=== PATIENT | male | born 1955 | race Caucasian/White ===

== ENCOUNTER 2022-11-05 12:42 | Inpatient (IN) | payer MEDICARE, BC, SELFPAY ==
[2022-11-05] VITALS (25 sets, daily range): BP systolic 137–176; BP diastolic 78–91; PULSE 66–78; RESP 18; TEMP 37.5; O2SAT 90–96; BMI 33.2
--- NOTE | 2022-11-05 13:34 | ED_ITS ---
HPI - Abdominal Pain General Chief Complaint: Abdominal Pain Stated Complaint: Abdominal pain Time Seen by Provider: 11/05/22 13:03 History of Present Illness HPI narrative: This 67-year-old male comes in reporting upper epigastric abdominal pain that began after eating his meal last evening. He states that it is a crampy pain that occurs almost regularly every 20 minutes. He has an intense very painful cramp in the upper epigastric region that dissipates and almost completely reso lves until the next episode about 20 minutes later. He has some associated nausea but no vomiting. He does not report any fever. Prior to this he has been in good health. He did have an a hernia repair but no other prior surgery to his abdomen. He does not report any symptoms of dysuria or altered bowel function. Related Data Allergies Allergy/AdvReac Type Severity Reaction Status Date / Time No Known Drug Allergies Allergy Verified 11/05/22 14:33 Review of Systems Status of ROS Reports: 10 or more systems reviewed and unremarkable except as noted in History and below Narrative Constitutional: No fevers, no weight gain or loss. Eyes: No discharge. No vision changes. HENT: No congestion, no sore throat, no ear pain. Cardiovascular: No chest pain, no palpitations. Respiratory: No shortness of breath, no wheezes, no cough. Gastrointestinal: No vomiting, no diarrhea. Abdominal pain as described above. He has loss of appetite. He did take some water and states that it seemed to make his symptoms worse. Genitourinary: No dysuria, no hematuria. Musculoskeletal: Normal range of motion. Skin: No rashes, no pruritis. Neurological: No dizziness, weakness, sensory change, speech change. Endo/Heme/Allergies: No bruising or bleeding. No polydipsia. Pysch: no suicidality, no anxiety, no insomnia. All other systems reviewed and are negative. Exam Narrative: Exam Narrative: Constitutional: Well-developed, well-nourished, no acute distress. HEENT: Normocephalic, atraumatic. Neck: Normal range of motion. Nontender. Supple. Heart: Regular. No murmurs. Normal rate. Intact distal pulses. Lungs: Clear to auscultation. No chest discomfort. No wheezes, rhonchi, or rales. Abdomen: Normal bowel sounds. He reports pain in the upper epigastric region. No rebound tenderness. Genitalia: Deferred. Back: No midline tenderness. Normal range of motion. Extremities: Normal range of motion. No injury. Skin: Intact. No rash. Warm. No erythema or pallor. Neurologic: No altered sensation. No weakness. Alert and oriented. Psychiatric: No suicidality. No anxiety or depression. No insomnia. Nursing notes and vitals signs are reviewed. Const: Vital Signs, click to edit/add: Vital Signs - 24 hr 11/05/22 12:58 Temperature 99.5 F Respiratory Rate 18 Blood Pressure [Ri ght Upper Arm] 168/83 H Pulse Oximetry 96 Oxygen Delivery Me thod Room Air Course Vital Signs Vital signs: Initial Vital Signs Temperature 99.5 F 11/05/22 12:58 Temperature Source Temporal Artery Scan 11/05/22 12:58 Respiratory Rate 18 11/05/22 12:58 Blood Pressure 168/83 H 11/05/22 12:58 Blood Pressure Mean 111 H 11/05/22 12:58 Pulse Oximetry 96 11/05/22 12:58 Oxygen Delivery Method Room Air 11/05/22 12:58 Vital Signs Temperature 99.5 F 11/05/22 12:58 Respiratory Rate 18 11/05/22 12:58 Blood Pressure 168/83 H 11/05/22 12:58 Pulse Oximetry 96 11/05/22 12:58 Oxygen Delivery Method Room Air 11/05/22 12:58 Temperature 99.5 F 11/05/22 12:58 Respiratory Rate 18 11/05/22 12:58 Blood Pressure 168/83 H 11/05/22 12:58 Pulse Oximetry 96 11/05/22 12:58 Oxygen Delivery Method Room Air 11/05/22 12:58 MDM - Abdominal Pain MDM Narrative Medical decision making narrative: This patient comes in with intermittent upper epigastric abdominal pain since last night. An IV was established and labs are acquired showing a mild elevation of his white count. CT imaging of the abdomen and pelvis is acquired and somewhat surprisingly shows evidence of acute severe appendicitis without evidence of perforation or abscess. He does also have an appendical if the. I spoke with the surgeon on-call, Dr. Edmonds. She will arrange for appendectomy very soon. Lab Data Labs: Lab Results 11/05/22 Range/Units 13:45 WBC 13.26 H (4.50-11.00) K/uL RBC 4.95 (4.30-5.90) m/uL Hgb 14.8 (13.5-17.5) gm/dL Hct 43.7 (37.0-53.0) % MCV 88 (80-100) fL MCH 30 (26-34) pg MCHC 34 (32-36) gm/dL RDW Coeff of Jose Miguel 12.5 (11.5-15.5) % Plt Count 237 (140-440) K/uL Neut % (Auto) 84.1 H (42.0-72.0) % Lymph % (Auto) 4.1 L (20-44) % Holt % (Auto) 11.2 H (0.0-11.0) % Eos % (Auto) 0.2 (0.0-7.0) % Baso % (Auto) 0.2 (0.0-3.0) % Neut # (Auto) 11.20 H (1.7-7.0) K/uL Lymph # (Auto) 0.50 L (0.90-2.90) K/uL Holt # (Auto) 1.50 H (0.00-0.90) K/UL Eos # (Auto) 0.00 (0.00-0.50) K/uL Baso # (Auto) 0.00 (0.00-0.30) K/uL Abs Immat Gran (auto) 0.00 (0.00-0.30) K/uL Imm/Tot Granulo (auto) 0.2 % Sodium 136 (135-149) mmol/L Potassium 3.0 L (3.6-5.1) mmol/L Chloride 99 (96-114) mmol/L Carbon Dioxide 30 (20-32) mmol/L BUN 19 (7-30) mg/dL Creatinine 0.7 (0.5-1.5) mg/dL Estimated Creat Clear 73.65 Estimated GFR 102 ml/min Glucose 129 H (60-115) mg/dL Calcium 8.6 (8.4-10.6) mg/dL Total Bilirubin 1.0 (0.1-1.5) mg/dL Direct Bilirubin 0.0 (0.0-0.5) mg/dL AST 20 (12-35) U/L ALT 25 (4-50) U/L Alkaline Phosphatase 68 (40-150) U/L Total Protein 6.9 (6.0-8.3) g/dL Albumin 4.2 (3.3-5.0) g/dL Lipase 32 (23-300) U/L Imaging Data CT scan - abdomen: Radiologist's impression: 1. Severe acute appendicitis. No evidence of perforation or abscess formation at this time. 2. Indeterminate subcentimeter bilateral renal lesions, too small to characterize. Recommend follow-up CT in 6-12 months. 3. Prostatomegaly, correlate with serum PSA. Discharge Plan Discharge Clinical Impression: Acute appendicitis Patient Disposition: XFER to OR Condition: Unchanged Follow Up/Referrals: Provider,Not a Local [Primary Care Provider] -
[2022-11-05 13:53] LABS: Basophils Percent Auto 0.2 % (0.0-3.0); Eosinophils Percent Auto 0.2 % (0.0-7.0); Hematocrit 43.7 % (37.0-53.0); Hemoglobin* 14.8 gm/dL (13.5-17.5); Immature Granulocytes Pct Auto 0.2 %; Lymphocytes Percent Auto 4.1 % (20-44); Mean Corpuscular HGB Conc 34 gm/dL (32-36); Mean Corpuscular Hemoglobin 30 pg (26-34); Mean Corpuscular Volume 88 fL (80-100); Monocytes Percent Auto 11.2 % (0.0-11.0); Neutrophils Percent Auto 84.1 % (42.0-72.0); Platelet Count* 237 K/uL (140-440); RDW Coefficient of Variation % 12.5 % (11.5-15.5); Red Blood Count 4.95 m/uL (4.30-5.90); White Blood Count* 13.26 K/uL (4.50-11.00)
[2022-11-05 13:54] LABS: Slide Review Reflex No
[2022-11-05] MEDS: ONDANSETRON 2 MG/ML inj 4 MG IVP ×2 (13:54→20:23)
[2022-11-05] MEDS: KETOROLAC 30 MG/ML inj IVP (13:54)
[2022-11-05] MEDS: 0.9 % SODIUM CHLORIDE 1000 ml 1,000 ML IV (13:55)
[2022-11-05 14:09] LABS: Chloride* 99 mmol/L (96-114); Sodium* 136 mmol/L (135-149)
[2022-11-05 14:10] LABS: Albumin* 4.2 g/dL (3.3-5.0)
[2022-11-05 14:11] LABS: Creatinine* 0.7 mg/dL (0.5-1.5); Est. Creatinine Clearance* 73.65; Estimated Glomerular Filt Rate 102 ml/min
[2022-11-05 14:12] LABS: Blood Urea Nitrogen* 19 mg/dL (7-30); Calcium* 8.6 mg/dL (8.4-10.6); Carbon Dioxide* 30 mmol/L (20-32); Glucose* 129 mg/dL (60-115); Total Protein* 6.9 g/dL (6.0-8.3)
[2022-11-05 14:13] LABS: Alanine Aminotransferase* 25 U/L (4-50); Alkaline Phosphatase* 68 U/L (40-150); Aspartate Amino Transferase* 20 U/L (12-35); Lipase* 32 U/L (23-300)
--- NOTE | 2022-11-05 14:17 | CRLHL7_ITS ---
For Patients: As a result of the Century Cures Act, medical imaging exams and procedure reports are released immediately into your electronic medical record. You may view this report before your referring provider. If you have questions, please contact your health care provider. INDICATION: Epigastric pain. TECHNIQUE: CT abdomen and pelvis acquired with 100 mL Isovue 370 contrast. COMPARISON: None. FINDINGS: Lower chest: No focal consolidation. Liver: Scattered too small to characterize hypodense hepatic lesions, likely benign in the absence of a known malignancy. Gallbladder and bile ducts: Unremarkable. Pancreas: Unremarkable. Spleen: Unremarkable. Adrenal glands: Unremarkable. Kidneys: Kidneys enhance symmetrically, without hydronephrosis. Too small to characterize hypodense bilateral renal lesions. These include an indeterminate appearing 0.8 cm lesion in the anterior right kidney (series 2, image 58) as well as an indeterminate 0.5 cm lesion in the posterior left kidney (series 2, image 54). Retroperitoneum: No lymphadenopathy. Bowel and mesentery: Dilated appendix with extensive periappendiceal inflammation, and a 0.8 cm appendicolith at the appendix base. No evidence of perforation or abscess formation at this time. No pneumoperitoneum. Bladder: Unremarkable for degree of distension. Reproductive organs: Prostatomegaly. Pelvic lymph nodes: No lymphadenopathy. Vessels: Extensive atherosclerotic calcifications. Abdominal wall: No acute abdominal wall abnormality. Bones: Extensive multilevel degenerative changes of the spine. No suspicious/aggressive focal osseous lesion. IMPRESSION: 1. Severe acute appendicitis. No evidence of perforation or abscess formation at this time. 2. Indeterminate subcentimeter bilateral renal lesions, too small to characterize. Recommend follow-up CT in 6-12 months. 3. Prostatomegaly, correlate with serum PSA. Please note that all CT scans at this facility use dose modulation, iterative reconstruction, and/or weight-based dosing when appropriate to reduce radiation dose to as low as reasonably achievable. Dictated by Tova Macdonald MD @ 11/05/2022 3:44:51 PM (Electronically Signed)
--- NOTE | 2022-11-05 17:35 | PM.GSHP ---
History of Present Illness History of Present Illness Date Seen: 11/05/22 Chief complaint: Abdominal pain Narrative: Roddy Wellington is a 67 year old male who presented to emergency room with epigastric abdominal pain that started yesterday in the afternoon. Patient states that he felt ?stomach ache? that became stomach spasms that he describes as contractions. Those would come every 20 minutes. They were located in epigastrium. He could not sleep all night. He had nausea but no vomiting. He was not passing gas today and his last bowel movement was yesterday. He was not sure what was making his pain better or worse. Upon his workup he was found to have an elevated WBC of 13. An abdominal CT was obtained that showed a dilated wall enhancing appendix with dilated appendiceal base and appendicolith at the appendiceal base. There is fluid at the appendiceal base that appears to be in the cecum but it is difficult to tell if there is a phlegmon present. The small bowel is not dilated. There is no clear evidence of periappendiceal abscess. Review of Systems Narrative: General: no fevers HENT: no problems swallowing CV: no shortness of breath Resp: no cough GI: See above : no dysuria, no increased urinary frequency, no hematuria Skin: no new rashes Musculoskeletal: no back pain Neuro: no muscle weakness PFSH PFS Surgical History (Updated 11/05/22 @ 17:40 by Graciela Edmonds MD) S/P repair of ventral hernia ?Z98.890 - Other specified postprocedural states (ICD-10) ?Z87.19 - Personal history of other diseases of the digestive system (ICD-10) Social History Smoking Status: Unknown if ever smoked Meds Home Medications and Allergies Allergies Allergy/AdvReac Type Severity Reaction Status Date / Time No Known Drug Allergies Allergy Verified 11/05/22 14:33 Exam Narrative: Exam Narrative: General appearance: Alert, cooperative, and in no distress Pulmonary: Chest symmetric, lungs clear bilaterally Cardiovascular Heart: Regular rate and rhythm, S1, S2, no murmurs/rubs/gallops Gastrointestinal Abdominal: soft, not distended, uncomfortable to palpation in epigastrium and there is right lower quadrant discomfort with rebound tenderness. Skin: Normal skin color, texture, and turgor. No rashes or lesions. Psychiatric: Alert, cooperative, normal affect. Const: Vital Signs, click to edit/add: Vital Signs - 24 hr 11/05/22 12:58 11/05/22 13:58 11/05/22 14:00 Temperature 99.5 F Pulse Rate 75 73 Respiratory Rate 18 Blood Pressure Blood Pressure [Ri ght Upper Arm] 168/83 H Pulse Oximetry 96 92 92 Oxygen Delivery Me thod Room Air Room Air 11/05/22 14:02 11/05/22 14:15 11/05/22 14:30 Temperature Pulse Rate 70 74 74 Respiratory Rate Blood Pressure 176/90 H Blood Pressure [Ri ght Upper Arm] Pulse Oximetry 91 90 95 Oxygen Delivery Me thod 11/05/22 14:32 11/05/22 14:45 11/05/22 15:04 Temperature Pulse Rate 78 77 76 Respiratory Rate Blood Pressure 173/91 H Blood Pressure [Ri ght Upper Arm] Pulse Oximetry 94 95 93 Oxygen Delivery Me thod 11/05/22 15:06 11/05/22 15:15 11/05/22 15:34 Temperature Pulse Rate 72 75 75 Respiratory Rate Blood Pressure 165/80 H Blood Pressure [Ri ght Upper Arm] Pulse Oximetry 95 95 95 Oxygen Delivery Me thod 11/05/22 15:45 11/05/22 16:07 11/05/22 16:57 Temperature Pulse Rate 72 73 72 Respiratory Rate Blood Pressure Blood Pressure [Ri ght Upper Arm] Pulse Oximetry 92 93 94 Oxygen Delivery Me thod 11/05/22 16:59 Temperature Pulse Rate Respiratory Rate Blood Pressure 153/89 H Blood Pressure [Ri ght Upper Arm] Pulse Oximetry Oxygen Delivery Me thod Assessment and Plan Assessment and plan (1) Acute appendicitis: Status: Acute (2) HTN (hypertension): Status: Acute (3) Hyperlipemia, mixed: Status: Acute Plan 67-year-old male presents with abdominal pain that is most likely due to acute appendicitis. I discussed with the patient his laboratory and imaging findings. Patient has dilated and wall enhancing appendix with an appendicolith at the base of the appendix. There is also a lot of information at the base of his appendix and it is difficult to tell if he has an intramural abscess were fluid in the cecum due to surrounding edema. I recommended to proceed with laparoscopic appendectomy. The procedure was discussed in detail. The risks associated procedure including infection, bleeding, injury to intra-abdominal organs, and possible need for ileocecectomy was also discussed with the patient. We are working on timing for surgery because of emergent OR cases being added on the OR schedule. We will treat the patient with antibiotics while waiting.
[2022-11-05] MEDS: MORPHINE 4 MG/ML INJ IVP (20:16)
--- NOTE | 2022-11-05 21:33 | ED.NURSE ---
Patient independently ambulatory to .
[2022-11-05] MEDS: PIPERACILLIN/TAZOBACTAM 3.375 GM INJ IVPB (22:48)
[2022-11-06] VITALS (22 sets, daily range): BP systolic 133–163; BP diastolic 76–101; PULSE 75–93; RESP 12–20; TEMP 35.5–37.3; O2SAT 91–97
--- NOTE | 2022-11-06 03:39 | W.ANESCHARGE ---
Anesthesia Charges Start Date/Time Anesthesia Start Date: 11/05/22 Anesthesia Start Time: 22:34 Stop Date/Time Anesthesia Stop Date: 11/06/22 Anesthesia Stop Time: 03:34 Summary Emergency: DIRECTOR OF PEDIATRIC REHABILITATION
--- NOTE | 2022-11-06 03:40 | PM.GSPRC ---
Operative Note Date of procedure: 11/05/22 Pre-op diagnosis: 1. Acute appendicitis. Post-op diagnosis: 1. Thickened appendiceal base with cecal puckering concerning for malignancy. Type of Procedure: 1. Laparoscopic appendectomy converted to laparoscopic right hemicolectomy. 2. Partial omentectomy. Indications: 67-year-old male presented to emergency room with epigastric pain that eventually migrated to the right lower quadrant. The pain started yesterday and was described as cramping or contractions. Patient did not have any fevers. On clinical exam he had tenderness to palpation in epigastrium and without significant rebound tenderness in right lower quadrant. Upon his workup he was found to have an elevated WBC. An abdominal CT was obtained that showed a dilated appendix with periappendiceal inflammation. There was thickening at the appendiceal base with an appendicolith and with fluid in the cecum adjacent to the appendiceal base. There was no evidence of periappendiceal abscess. Given patient's clinical picture and his physical exam, acute appendicitis was suspected, and laparoscopic appendectomy was recommended. The procedure was discussed in detail. The risks associated procedure including infection, bleeding, injury to intra-abdominal organs, and possible conversion to ileocecectomy were all discussed with the patient, and he agreed to proceed. Procedure Description: After discussing the risks and benefits of the procedure, the patient signed informed consent.? The operative site was marked and the patient was brought to the operating room and placed on the operating table in supine position.? Care was taken to pad the patient's pressure points.?? The patient was then intubated by anesthesia.?? The operative site was then prepped and draped in the usual sterile fashion.? A time-out was then performed. A 5-mm laparoscopy port was placed in the left upper quadrant guided by a 5-mm laparoscope placed into a translucent trochar. Passage through the layers of the abdominal wall was visualized with the laparoscope. A pneumoperitoneum was established. A 30-degree 5-mm laparoscope was advanced into the abdomen. The abdomen was briefly surveyed, and there was no evidence of diffuse peritonitis. A 12-mm port and a 5-mm port were placed in the left lower quadrant and suprapubically, respectively, under direct visualization by laparoscope. Left upper quadrant entrance port was then examined intraabdominally by placing the camera through the left lower quadrant port and no intraabdominal injury was seen. The patient was placed in Trendelenburg position, allowing the abdominal contents to shift cephalad. The small bowel was moved toward the midline in the abdomen and this allowed for identification of the appendix. The appendiceal base was thickened and folded on itself. The appendix was dissected from the lateral abdominal wall with Harmonic scalpel. Once the appendix was free from the lateral abdominal wall, I was able to examine the appendiceal base closer. The appendiceal base was firm and there appeared to be puckering of the appendiceal base into the cecum. This was concerning for malignant mass. The cecum did not have inflammatory firm adhesions to adjacent structures. There was an area of omentum that appeared to have flat scar but no peritoneal studding was noted and the surface of visualized liver appeared normal with a small cyst. The appendix and cecum were mobilized off the lateral abdominal wall with Harmonic scalpel. The terminal ileum that was attached to the lateral abdominal wall was mobilized with Harmonic scalpel. When the cecum was fairly mobile, I re-examined the base of the appendix and continued to be concerned that there is a cecal malignancy creating the puckering of the cecal serosa into cecal lumen. At this time I scrubbed out of the surgery and went to talk to the patient's . I discussed with the patient's my concerns and I recommended to proceed with a right hemicolectomy because of the concern for cecal or appendiceal cancer. I did discuss with her that only final pathology will be able to confirm if his thickening is due to inflammation or malignance. Patient's agreed to proceed with right hemicolectomy. I scrubbed back into the case. An additional 5 mm port was placed in mid abdomen under direct visualization. I then proceeded with the right hemicolectomy laparoscopically. The cecum and ascending colon was retracted medially. The white line of Toldt on the right was divided laterally with the Harmonic scalpel. The small bowel was making it difficult to identify the vascular pedicle at the beginning of the case. I decided to proceed with mobilization of hepatic flexure and lateral to medial dissection. Gastrocolic ligament was divided with Harmonic scalpel in the mid transverse colon. This dissection was carried from mid transverse colon towards the hepatic flexure wrapping around the hepatic flexure in the lateral abdominal wall with Harmonic scalpel. The transverse colon was retracted caudad and colonic mesentery was dissected from retroperitoneum with Harmonic scalpel as well. Care was taken to avoid injury to the duodenum. When the lateral attachments of the hepatic flexure were divided, we turned our attention again to the ileocolic vascular pedicle. The peritoneum overlying the vascular pedicle was scored with a Harmonic scalpel. The artery and vein was skeletonized with Harmonic scalpel and with [place] dissector. The vascular pedicle was then divided with vascular load of Endo-SARKIS stapler. No bleeding was seen from the staple line. I continued mesenteric dissection towards the hepatic flexure with Harmonic scalpel until we reached the plane of dissection in the posterior transverse colonic mesentery. At this time the colon was fairly mobile and we decided to proceed with the open part of the procedure. The appendix was grasped with a laparoscopic grasper. A horizontal right paramedian incision was made with a scalpel in mid abdomen. Subcutaneous fat was divided with cautery down to anterior fascia. The anterior fascia was incised with cautery. Rectus muscle was divided with cautery. Peritoneum and posterior fascia was then incised with cautery and abdomen was entered. This incision was then enlarged and a medium sized Amarjit retractor was placed into the incision. The dissected cecum was eviscerated and examined. The base of the appendix was firm on palpation. The terminal ileal mesentery was then divided with the Harmonic scalpel several cm from the ileocecal valve. The small bowel was then divided with blue load of SARKIS stapler. Transverse colon at the hepatic flexure was then examined. Abundant epiploic fat was excised with cautery at the proposed area of division of the transverse colon. Colonic mesentery was divided with clamps and Vicryl ties. The proximal transverse colon was then divided with a blue load of SARKIS stapler. Bleeding from small bowel and transverse colon staple line was controlled with interrupted figure of eight silk sutures. We then proceeded with creating side to side functional end-to-end anastomosis. A small bowel enterotomy was made with cautery on anti mesenteric side. Similarly, colotomy was made in the tenia with cautery. These openings were approximately 1-2 cm away from the staple lines. A functional end-to-end anastomosis was then created with a blue load of SARKIS stapler. The staple line was examined from the inside and no bleeding was visualized. The common enterotomy was then closed with interrupted Lambert sutures using 3-0 silk. A crotch stitch was placed with 3-0 silk. The mesenteric defect was not closed. No bleeding was seen from the mesentery or anastomosis. The anastomosis was pink and perfused. The anastomosis was palpated and was patent. The anastomosis was then placed back into the abdomen. All dirty towels that were previously placed were removed, and surgeon and assistants changed gloves. The Christina retractor was also removed. We then eviscerated omentum and identified the area of scar tissue over omentum. This segment was approximately 7 x 4 cm. This was excised with Harmonic scalpel. This was sent to pathology separately as partial omentectomy. We then proceeded with closure. Peritoneum of paramedian incision was then closed with a running 0-0 Vicryl suture. The anterior fascia was closed with 2 running 0-0 Maxon sutures. Hemostasis was achieved with cautery. A moist Ray-Aleta was placed in the subcutaneous space of the incision. The abdomen was then insufflated with carbon dioxide. We examined our anastomosis intracorporeally. Anastomosis was pink and perfused. No bleeding was identified at the surgical site. The fascia of the 12 mm port in the left lower quadrant was then closed with interrupted 0-0 Vicryl using Sky-Lexi needle. This was done under direct visualization. The abdomen was then deflated and all ports were removed. The soft tissue of the right paramedian incision was then reapproximated in layers with interrupted Vicryl sutures. The skin of laparoscopic incisions and the right paramedian incision were closed with a running 4-0 Monocryl stitch. Steri-Strips were placed over the incisions. The paramedian incision was covered with sterile gauze and tape. All counts were correct at the end of the case. The patient tolerated this procedure well and was transferred to PACU in stable condition. Findings: Thickened appendiceal base with puckering of the cecum a the base of the appendix concerning for malignancy. Proceeded with laparoscopic right hemicolectomy. The specimen was opened on the back table and the base of the appendix was thickened in a donut like fashion but there was no exophitic mass. Anesthesia: GETA Surgeon: Graciela Edmonds MD Estimated blood loss (mL): 30 Specimen: Appendix Condition: stable Disposition: PACU
[2022-11-06] MEDS: LACTATED RINGERS 1000 ML 1,000 ML 100 ML IV ×3 (04:34→19:17)
[2022-11-06] MEDS: HYDROmorphone 0.5 mg/0.5 ml inj IVP ×7 (04:57→23:48)
[2022-11-06] MEDS: PIPERACILLIN/TAZOBACTAM 3.375 GM in 0.9 % SODIUM CHLORIDE Mini-bag 100 ML IVPB ×4 (04:57→22:47)
--- NOTE | 2022-11-06 07:01 | PC.NURSE ---
Pt arrived from PACU approx 0400, no N/V, pain tolerable. Lap sites x3 with steri-strips, intact, old drainage present underneath. R abd incision dressing C/D/I, tolerating ice chips and small sips. educated and emphesized importance or taking oral intake slow, pt and family acknowledged understanding. no bowel sounds present, is not passing gas yet, abd distended and firm.
[2022-11-06 08:13] LABS: Basophils Percent Auto 0.1 % (0.0-3.0); Hematocrit 43.7 % (37.0-53.0); Hemoglobin* 14.4 gm/dL (13.5-17.5); Immature Granulocytes Pct Auto 0.2 %; Lymphocytes Percent Auto 2.3 % (20-44); Mean Corpuscular HGB Conc 33 gm/dL (32-36); Mean Corpuscular Hemoglobin 30 pg (26-34); Mean Corpuscular Volume 90 fL (80-100); Monocytes Percent Auto 6.2 % (0.0-11.0); Neutrophils Percent Auto 91.2 % (42.0-72.0); Platelet Count* 215 K/uL (140-440); RDW Coefficient of Variation % 12.8 % (11.5-15.5); Red Blood Count 4.84 m/uL (4.30-5.90)
[2022-11-06 08:14] LABS: Slide Review Reflex No
[2022-11-06 08:29] LABS: Chloride* 99 mmol/L (96-114); Potassium* 3.2 mmol/L (3.6-5.1); Sodium* 138 mmol/L (135-149)
[2022-11-06 08:32] LABS: Carbon Dioxide* 28 mmol/L (20-32); Creatinine* 0.9 mg/dL (0.5-1.5); Est. Creatinine Clearance* 73.65; Estimated Glomerular Filt Rate 95 ml/min
[2022-11-06 08:33] LABS: Blood Urea Nitrogen* 19 mg/dL (7-30); Calcium* 8.3 mg/dL (8.4-10.6); Glucose* 196 mg/dL (60-115)
[2022-11-06] MEDS: POTASSIUM CHLORIDE 10 MEQ/100 ML PIGGYBACK 100 MEQ IVPB (10:38)
[2022-11-06] MEDS: HYDROCODONE-ACETAMIN 5-325 MG 1 TAB PO (18:44)
--- NOTE | 2022-11-06 18:53 | PC.NURSE ---
Post op 6 hr was completed @ 1000 this morning. Pt is reporting constant 5/10 pain received IV Dilaudid a couple times this shift see MAR. Received his first dose of PO medication 650 of NORCO @1850. On prophylactic antibiotics. Pt tolerating clear liquids well, pt was encouraged to take slow sips but drank more than sips see I/O. Had 1/2 cup of broth and 2 jello cups and reports he feels full. Voiding well since surgery. No gas passed yet, tenderness and distention present. Lower left/right quadrants sound hypoactive, both upper quadrants have absent bowel sounds. Dressing to incision site is CDI, 4 lap sites with steri strips w/ some dried blood. Ice to Op site throughout the shift. Bilateral SCD's in place. Educated on incentive spirometer as well as PO vs IV pain medications, and proper movement post abdominal surgery. Pt's and daughter at bedside most of the afternoon, has gone on multiple walks in the [place]. Pt is very motivated to get better, he was encouraged to take it slow to not overdue it by his family as well.
[2022-11-07] MEDS: HYDROCODONE-ACETAMIN 5-325 MG 1 TAB PO ×4 (00:22→18:22)
[2022-11-07 03:00] VITALS: BP 149/78; PULSE 82; RESP 18; TEMP 36.4; O2SAT 91
[2022-11-07] MEDS: PIPERACILLIN/TAZOBACTAM 3.375 GM in 0.9 % SODIUM CHLORIDE Mini-bag 100 ML IVPB ×3 (05:06→16:37)
--- NOTE | 2022-11-07 05:21 | PC.NURSE ---
patient alert and oriented x 4. Pain reported to abdomen, well managed with PRN norco and dilaudid. Denies any nausea or vomiting, tolerating clear liquids. Bowel sounds hypoactive, patient is passing flatus. Lungs clear, denies any cough or shortness of breath. Patient is able to use incentive spirometer independently. Ambulates independently, up ad sapphire in room. Patient up frequently in room and also walking the halls.
[2022-11-07 07:38] VITALS: BP 148/87; PULSE 81; RESP 16; TEMP 36.9; O2SAT 91
[2022-11-07] MEDS: POTASSIUM BICARB 25 MEQ EFFERVESCENT TAB PO ×2 (09:33→13:09)
--- NOTE | 2022-11-07 10:11 | PM.DS1 ---
DS: Providers Provider Date Seen: 11/07/22 Date of admission: 11/06/22 04:15 Primary care physician: Not a Local Provider Admitting Clinician: Graciela Edmonds MD Attending Physician on discharge: Graciela Edmonds MD DS: Diagnosis Discharge Diagnosis (1) Acute appendicitis: Status: Acute (2) S/P right hemicolectomy: Status: Acute DS: Summary Hospital Course Hospital Course: 67-year-old male underwent laparoscopic appendectomy converted to right hemicolectomy for concern of cancer at the appendiceal base. Patient has been doing well. He is tolerating clears and had flatus today. His diet diet was advanced. Status at Discharge Functional status at discharge: independent ambulation Time Spent with Patient Time attestation: Total time spent providing and/or coordinating discharge services: Exam Const: Vital Signs, click to edit/add: Vital Signs - 24 hr 11/06/22 15:53 11/06/22 18:44 11/06/22 19:00 Temperature 99.1 F 98.5 F 98.1 F Pulse Rate [Pulse Oximeter] 90 86 Respiratory Rate 16 18 Blood Pressure [Le ft Arm] 144/88 H 155/91 H Pulse Oximetry 91 92 Oxygen Delivery Me thod Room Air Room Air 11/06/22 23:00 11/07/22 03:00 11/07/22 07:38 Temperature 98.5 F 97.6 F 98.5 F Pulse Rate [Pulse Oximeter] 83 82 81 Respiratory Rate 16 18 16 Blood Pressure [Le ft Arm] 142/78 H 149/78 H 148/87 H Pulse Oximetry 91 91 91 Oxygen Delivery Me thod Room Air Room Air Room Air Discharge Plan Discharge Disposition: Home, Self-Care Date of Admission: 11/06/22 04:15 Attending Provider on Discharge: Graciela Edmonds Primary Care Provider: Provider,Not a Local Condition: Improved Anticipated Discharge Date/Time: 11/06/22 20:12 Discharge Medications: New hydrocodone-acetaminophen 5-325 mg tablet 1 tab PO Q6H PRN (Reason: pain) Qty: 25 0RF Continued rosuvastatin 5 mg tablet 5 mg PO DAILY mhqcfkpnra-qwjupzwhs-qzmsakjwr 10-320-25 mg tablet 1 tab PO DAILY ibuprofen 200 mg tablet 200 mg PO Q6-8H PRN glucosamine sulfate [Glucosamine] 500 mg tablet 1,000 mg PO DAILY diphenhydramine HCl [Sleep Aid (diphenhydramine)] 25 mg tablet 25 mg PO HS PRN Discharge Orders: Discharge Order (Routine); Ordered 11/07/22 Ordered By: Graciela Edmonds Patient Education: General Anesthesia (DC), Laparoscopic Appendectomy (DC), Post-Operative Instructions: Appendectomy Additional Instructions: You should follow-up with your primary care doctor in [place] to make sure your incisions are healing well. Activity Level: No strenuous activity Discharge Diet: Regular Follow Up Appointments: Provider,Not a Local [Primary Care Provider] - Forms: [facility] Info Instructions
[2022-11-07 11:37] VITALS: BP 148/83; PULSE 84; RESP 16; TEMP 36.9; O2SAT 91
[2022-11-07] MEDS: HYDROmorphone 0.5 mg/0.5 ml inj IVP (14:13)
[2022-11-07 15:10] VITALS: BP 118/83; PULSE 84; RESP 16; TEMP 36.9; O2SAT 91
--- NOTE | 2022-11-07 18:59 | PC.NURSE ---
VSS on RA, IV went bad today per [facility] ok to dc ABX. Pt felt very bloated and 7/10 pain awhile after having PO potassium earlier today. IV diluadid given 1x, gave 2 tabs of NARCO q6 right on schedule. He has had tolerable 5/10 pain since. Tried his first full liquid diet for dinner, no nausea. Dr Edmonds also took off the larger incision bandage. 4 lap sites with steri strips CDI. Ice to Op site on and off throughout the shift. Abdomen is soft, and hypoactive bowel sounds in all 4 quadrents, with flatus. Went on a couple walks with his family. The original plan was for him to dc today but pt feels more comfortable leaving tomorrow which Dr Edmonds approved as well.
[2022-11-07 19:00] VITALS: BP 155/83; PULSE 85; RESP 16; TEMP 37.3; O2SAT 91
[2022-11-07 23:00] VITALS: BP 170/90; PULSE 89; RESP 16; TEMP 37.1; O2SAT 89
[2022-11-08] VITALS (9 sets, daily range): BP systolic 149–180; BP diastolic 81–97; PULSE 73–91; RESP 16–18; TEMP -15–37; O2SAT 91–94
[2022-11-08] MEDS: HYDROCODONE-ACETAMIN 5-325 MG 1 TAB PO ×3 (00:02→15:06)
--- NOTE | 2022-11-08 06:15 | PC.NURSE ---
Shift note: Pt 's condition is stable. Tolerated full liquid diet very well without any abdominal symptoms. Alert and oriented. Doing well with pain, rated at 5 and only 1x pain medication tonight. Pt confirmed of passing gas. Active bowel sound but no BM yet. Pt is independent in room. Had adequate sleep.
[2022-11-08] MEDS: ONDANSETRON ODT 4 MG TAB PO ×2 (08:48→15:06)
--- NOTE | 2022-11-08 09:56 | P.GSPN_ITS ---
Subjective Subjective Date Seen: 11/08/22 Interval history: Patient is doing well. Received IV Dilaudid and [place] yesterday for increased abdominal pain. Patient states that the pain is usually worse with movement. He continues to pass gas. He tolerated clears and full liquid diet. He ambulated. Exam Narrative: Exam Narrative: Abdomen is soft, patient complains of discomfort throughout the abdomen although when abdomen is palpated in the lower bilateral quadrants patient denies pain. Incisions are covered with clean steris. Const: Vital Signs, click to edit/add: Vital Signs - 24 hr 11/07/22 11:37 11/07/22 15:10 11/07/22 19:00 Temperature 98.5 F 98.5 F 99.2 F Pulse Rate [Pulse Oximeter] 84 84 85 Respiratory Rate 16 16 16 Blood Pressure [Le ft Arm] 148/83 H 118/83 155/83 H Pulse Oximetry 91 91 91 Oxygen Delivery Me thod Room Air Room Air Room Air 11/07/22 23:00 11/07/22 23:00 11/08/22 03:00 Temperature 98.7 F 98.6 F Pulse Rate [Pulse Oximeter] 89 89 91 Respiratory Rate 16 16 16 Blood Pressure [Le ft Arm] 170/90 H 169/97 H Pulse Oximetry 89 91 Oxygen Delivery Me thod Room Air Room Air Progress Note: A&P Assessment and plan (1) S/P right hemicolectomy: Status: Acute Plan 67-year-old male s/p laparoscopic appendectomy converted to right hemicolectomy POD 3. Patient can advance to regular diet since he has return of bowel function. I discussed with the patient that his pain with movement is normal after the type of surgery that he had. He should continue ambulating as tolerated. He can take [place] as needed. I reinforced with the patient that he should eat small amounts throughout the day and not 3 big meals during his recovery period.
--- NOTE | 2022-11-08 09:59 | P.GSPN_ITS ---
Subjective Subjective Date Seen: 11/07/22 Interval history: Patient was doing well. His abdominal pain was controlled with IV and p.o. pain medication. He denies any nausea or vomiting. He started to pass gas. He was ambulating. Exam 2 Narrative: Exam Narrative: Abdomen is soft, not distended, not tender to palpation. Laparoscopic incisions and right paramedian incision were covered with clean Steries. Const: Vital Signs, click to edit/add: Vital Signs - 24 hr 11/07/22 11:37 11/07/22 15:10 11/07/22 19:00 Temperature 98.5 F 98.5 F 99.2 F Pulse Rate [Pulse Oximeter] 84 84 85 Respiratory Rate 16 16 16 Blood Pressure [Le ft Arm] 148/83 H 118/83 155/83 H Pulse Oximetry 91 91 91 Oxygen Delivery Me thod Room Air Room Air Room Air 11/07/22 23:00 11/07/22 23:00 11/08/22 03:00 Temperature 98.7 F 98.6 F Pulse Rate [Pulse Oximeter] 89 89 91 Respiratory Rate 16 16 16 Blood Pressure [Le ft Arm] 170/90 H 169/97 H Pulse Oximetry 89 91 Oxygen Delivery Me thod Room Air Room Air Progress Note: A&P Assessment and plan (1) S/P right hemicolectomy: Status: Acute Assessment and Plan: 67 year old male s/p right hemicolectomy p.o. due to. Patient is recovering well. He has return of bowel function. Will advance his diet to full liquids. Patient could discharge home but the end of the day if his pain is controlled with p.o. medications and he is tolerating regular diet.
--- NOTE | 2022-11-08 10:32 | PC.NURSE ---
shift note: Pt states this a.m he has sudden increase in nausea. Dr. Edmonds notified via phone and orders to give Zofran ODT. Pt received medication and was instructed to use alcohol wipe to assist with nausea. Rechecked pt within 30 mins and pt's resting with nausea resolved. Pt medicated for 8/10 abd pain with 2 norco. Rechecked pt 1 hour after admin and pt asleep. pt's at bedside. Instructed pt's to have pt turn to lt side onto pillow and use aqua K pad for abd discomfort. Pt abd is distended and BS tympanic. Pt's spouse alerted show card writer ! 1020 that pt awoke in severe pain. Dr. Edmonds notified; lab work ordered and pt made NPO. Dr. Edmonds said she was going to see pt. Family notified
--- NOTE | 2022-11-08 11:02 | PM.GSPN ---
Subjective Subjective Date Seen: 11/08/22 Interval history: Patient all of a sudden started to complain of nausea. Received still with Zofran. He now complains of increased abdominal pain and bloating. He tried to go to the bathroom to pass gas but was not successful. He walked only twice yesterday and has not walked today. Exam Narrative: Exam Narrative: Abdominal exam is not significantly changed. Patient still complains of being ?sensitive? everywhere. The abdomen is tympanic to percussion. There is no tenderness to palpation in the left mid abdomen and no peritoneal signs. Const: Vital Signs, click to edit/add: Vital Signs - 24 hr 11/07/22 11:37 11/07/22 15:10 11/07/22 19:00 Temperature 98.5 F 98.5 F 99.2 F Pulse Rate [Pulse Oximeter] 84 84 85 Respiratory Rate 16 16 16 Blood Pressure [Le ft Arm] 148/83 H 118/83 155/83 H Pulse Oximetry 91 91 91 Oxygen Delivery Me thod Room Air Room Air Room Air 11/07/22 23:00 11/07/22 23:00 11/08/22 03:00 Temperature 98.7 F 98.6 F Pulse Rate [Pulse Oximeter] 89 89 91 Respiratory Rate 16 16 16 Blood Pressure [Le ft Arm] 170/90 H 169/97 H Pulse Oximetry 89 91 Oxygen Delivery Me thod Room Air Room Air 11/08/22 08:25 Temperature 98.1 F Pulse Rate [Pulse Oximeter] 88 Respiratory Rate 18 Blood Pressure [Le ft Arm] 180/92 H Pulse Oximetry 94 Oxygen Delivery Me thod Room Air Progress Note: A&P Assessment and plan (1) S/P right hemicolectomy: Status: Acute Plan 67-year-old male s/p laparoscopic appendectomy converted to right hemicolectomy POD 3. I suspect this patient might have postoperative ileus and gas pains. Will obtain CBC and BMP. I discussed with the patient that he needs to walk as much as possible to promote return of bowel function. Patient is not ready to discharge today.
[2022-11-08 11:09] LABS: Chloride* 94 mmol/L (96-114); Sodium* 137 mmol/L (135-149)
[2022-11-08 11:10] LABS: Potassium* 3.1 mmol/L (3.6-5.1)
[2022-11-08 11:12] LABS: Creatinine* 0.8 mg/dL (0.5-1.5); Est. Creatinine Clearance* 73.65; Estimated Glomerular Filt Rate 98 ml/min
[2022-11-08 11:13] LABS: Blood Urea Nitrogen* 11 mg/dL (7-30); Calcium* 9.2 mg/dL (8.4-10.6); Carbon Dioxide* 33 mmol/L (20-32); Glucose* 115 mg/dL (60-115)
[2022-11-08 11:22] LABS: Basophils Absolute Auto 0.05 K/uL (0.00-0.30); Basophils Percent Auto 0.5 % (0.0-3.0); Eosinophils Absolute Auto 0.09 K/uL (0.00-0.50); Eosinophils Percent Auto 0.8 % (0.0-7.0); Hematocrit 47.8 % (37.0-53.0); Hemoglobin* 15.7 gm/dL (13.5-17.5); Immature Granulocytes Abs Auto 0.05 K/uL (0.00-0.30); Immature Granulocytes Pct Auto 0.5 %; Lymphocytes Percent Auto 6.4 % (20-44); Mean Corpuscular HGB Conc 33 gm/dL (32-36); Mean Corpuscular Hemoglobin 30 pg (26-34); Mean Corpuscular Volume 91 fL (80-100); Monocytes Percent Auto 9.3 % (0.0-11.0); Neutrophils Percent Auto 82.5 % (42.0-72.0); Platelet Count* 310 K/uL (140-440); RDW Coefficient of Variation % 12.1 % (11.5-15.5); Red Blood Count 5.26 m/uL (4.30-5.90); White Blood Count* 10.86 K/uL (4.50-11.00)
[2022-11-08 11:23] LABS: Slide Review Reflex No
--- NOTE | 2022-11-08 13:53 | P.IMCN_ITS ---
Date of Consult Patient: Other Consult date: 11/08/22 Requesting Physician: General Surgery ([facility]) Primary Care Provider: Estuardo Montoya MD Consult Narrative Reason for consult: hypertension, hypokalemia Narrative: Roddy Wellington is a 67 year old male who had sever acute appendicitis with no evidence of perforation or abscess formation for which he underwent laparoscopic appendectomy that was converted to a laparoscopic right hemicolectomy and partial omentectomy for thickened appendiceal base with cecal puckering concerning for malignancy. This was done 11/05/[address] Edmonds. Due to return of bowel function he he advanced his diet yesterday, but he has been having nausea and increased abdominal pain and bloating today. We are consulted to help manage hypertension and electrolytes. He tells me his pain this morning was the worst it has been this hospital stay and is now under control now this afternoon. He continues to feel very bloated. He has been on several walks already today. He described having very irritated by the IV that had been in for the last 4 days and refused any further IVs. We discussed restarting an IV with some fluids this evening if he continues to need to be NPO by this evening. He was agreeable to that plan. He is hoping to go home tomorrow. His and daughter were in the room. Questions were answered. Review of Systems Status of ROS: Reports: 10 or more systems reviewed and unremarkable except as noted in History and below [facility] Medical History (Updated 11/08/22 @ 15:49 by Viri Birch MD) Statin intolerance ?Z78.9 - Other specified health status (ICD-10) Adjustment disorder with anxiety (~2009) ?F43.22 - Adjustment disorder with anxiety (ICD-10) Dysplastic nevus syndrome ?D23.9 - Other benign neoplasm of skin, unspecified (ICD-10) Impotence of organic origin ?N52.9 - Male erectile dysfunction, unspecified (ICD-10) Dermatophytosis of nail ?B35.1 - Tinea unguium (ICD-10) Left ear hearing loss ?H91.92 - Unspecified hearing loss, left ear (ICD-10) Tinnitus ?H93.19 - Tinnitus, unspecified ear (ICD-10) HTN (hypertension) ?I10 - Essential (primary) hypertension (ICD-10) Surgical History (Updated 11/08/22 @ 15:49 by Viri Birch MD) H/O colonoscopy ?Z98.890 - Other specified postprocedural states (ICD-10) S/P right hemicolectomy (11/05/22) ?Z90.49 - Acquired absence of other specified parts of digestive tract (ICD- 10) S/P repair of ventral hernia (~10/08/19) ?Z98.890 - Other specified postprocedural states (ICD-10) ?Z87.19 - Personal history of other diseases of the digestive system (ICD-10) Family History (Updated 11/08/22 @ 14:09 by Viri Birch MD) Father Alcohol dependence COPD (chronic obstructive pulmonary disease) Mother High blood pressure Arthritis Maternal Grandmother High blood pressure Sister Arthritis Social History (Updated 11/08/22 @ 15:21 by Viri Birch MD) Narrative: Quit smoking around 2009. 2-3 glasses of wine 3 times a week. Smoking Status: Former smoker What tobacco products do you use: cigarettes Smoking packs per day: 1 Smoking cigarettes per day: 20.0 Years smoked: 30 Smoking pack-years: 30.00 Smoking quit date/years: <= 15 years ago Meds Home Medications and Allergies Home Medications Medication Instructions Recorded Confirmed Type amlodipine 10 mg-valsartan 320 1 tab PO DAILY 11/06/22 11/06/22 History mg-hydrochlorothiazide 25 mg tablet diphenhydramine HCl 25 mg tablet 25 mg PO HS PRN 11/06/22 11/06/22 History (Sleep Aid (diphenhydramine)) glucosamine sulfate 500 mg tablet 1,000 mg PO DAILY 11/06/22 11/06/22 History (Glucosamine) ibuprofen 200 mg tablet 200 mg PO Q6-8H PRN 11/06/22 11/06/22 History rosuvastatin 5 mg tablet 5 mg PO DAILY 11/06/22 11/06/22 History Allergies Allergy/AdvReac Type Severity Reaction Status Date / Time No Known Drug Allergies Allergy Verified 11/05/22 14:33 Exam Narrative: Exam Narrative: General: No acute distress. Affect is flat and irritated. Awake alert oriented x3. HEENT: Normocephalic atraumatic, pupils equally round and reactive to light and accommodation. Oropharynx clear. Mucous membranes are moist. No JVD. Cardiovascular: Regular rate and rhythm. No murmurs, gallops, or rubs. Chest: No increased work of breathing. Clear to auscultation bilaterally. No crackles or wheezes. Abdomen: Bowel sounds hypoactive. Distended, surgical wounds from laparoscopy are clean, dry, and intact. There is some bruising under the wound inferior to the umbilicus. Diffusely tender to palpation, no rebound tenderness or guarding. Extremities: No edema, no cyanosis or clubbing. Skin: No jaundice, no pallor, no rashes. Const: Vital Signs, click to edit/add: Vital Signs - 24 hr 11/07/22 15:10 11/07/22 19:00 11/07/22 23:00 Temperature 98.5 F 99.2 F Pulse Rate [Pulse Oximeter] 84 85 89 Respiratory Rate 16 16 16 Blood Pressure [Le ft Arm] 118/83 155/83 H Pulse Oximetry 91 91 Oxygen Delivery Me thod Room Air Room Air 11/07/22 23:00 11/08/22 03:00 11/08/22 08:25 Temperature 98.7 F 98.6 F 98.1 F Pulse Rate [Pulse Oximeter] 89 91 88 Respiratory Rate 16 16 18 Blood Pressure [Le ft Arm] 170/90 H 169/97 H 180/92 H Pulse Oximetry 89 91 94 Oxygen Delivery Me thod Room Air Room Air Room Air Documenting provider has reviewed patient's vital signs: yes Labs Labs: Short CBC 11/08/22 Range/Units 10:43 WBC 10.86 (4.50-11.00) K/uL Hgb 15.7 (13.5-17.5) gm/dL Hct 47.8 (37.0-53.0) % Plt Count 310 (140-440) K/uL BMP 11/08/22 10:43 Sodium 137 Potassium 3.1 L Chloride 94 L Carbon Dioxide 33 H BUN 11 Creatinine 0.8 Glucose 115 Calcium 9.2 11/05/2022 EKG: Normal sinus rhythm, 72 beats per minute, normal EKG. Ordering Physician: Thom Tompkins M.D. Date of Service: 11/05/22 Procedure(s): CT abdomen pelvis w con Accession Number(s): [id number] cc: Thom Tompkins M.D.; Provider,Not a Local~ For Patients: As a result of the Century Cures Act, medical imaging exams and procedure reports are released immediately into your electronic medical record. You may view this report before your referring provider. If you have questions, please contact your health care provider. INDICATION: Epigastric pain. TECHNIQUE: CT abdomen and pelvis acquired with 100 mL Isovue 370 contrast. COMPARISON: None. FINDINGS: Lower chest: No focal consolidation. Liver: Scattered too small to characterize hypodense hepatic lesions, likely benign in the absence of a known malignancy. Gallbladder and bile ducts: Unremarkable. Pancreas: Unremarkable. Spleen: Unremarkable. Adrenal glands: Unremarkable. Kidneys: Kidneys enhance symmetrically, without hydronephrosis. Too small to characterize hypodense bilateral renal lesions. These include an indeterminate appearing 0.8 cm lesion in the anterior right kidney (series 2, image 58) as well as an indeterminate 0.5 cm lesion in the posterior left kidney (series 2, image 54). Retroperitoneum: No lymphadenopathy. Bowel and mesentery: Dilated appendix with extensive periappendiceal inflammation, and a 0.8 cm appendicolith at the appendix base. No evidence of perforation or abscess formation at this time. No pneumoperitoneum. Bladder: Unremarkable for degree of distension. Reproductive organs: Prostatomegaly. Pelvic lymph nodes: No lymphadenopathy. Vessels: Extensive atherosclerotic calcifications. Abdominal wall: No acute abdominal wall abnormality. Bones: Extensive multilevel degenerative changes of the spine. No suspicious/aggressive focal osseous lesion. IMPRESSION: 1. Severe acute appendicitis. No evidence of perforation or abscess formation at this time. 2. Indeterminate subcentimeter bilateral renal lesions, too small to characterize. Recommend follow-up CT in 6-12 months. 3. Prostatomegaly, correlate with serum PSA. Please note that all CT scans at this facility use dose modulation, iterative reconstruction, and/or weight-based dosing when appropriate to reduce radiation dose to as low as reasonably achievable. Dictated by Tova Macdonald MD @ 11/05/2022 3:44:51 PM (Electronically Signed) Assessment and Plan Assessment and plan (1) S/P right hemicolectomy: Problem comment: - 11/05/22 Dr. Edmonds for acute appendicitis with appendiceal abnormalities concerning for possible malignancy. Pathology is pending. - Awaiting return of bowel function. Cares per surgery. - If he will be NPO overnight, patient agreeable to start IVF for hydration. Status: Acute (2) Acute appendicitis: Status: Resolved (3) Hypokalemia: Problem comment: Patient refusing IV at this time. Change IV potassium replacement to tabs (he refuses liquid KCl). Recheck in am. Status: Acute (4) HTN (hypertension): Problem comment: - BP elevated in the 140-150s/90s, today SBP elevated to 170-180. He is also painful and had a delay in getting his antihypertensive this morning. It is possible he is not absorbing oral medication well while waiting for ROBF, however BP is most likely elevated today secondary to pain and anxiety about situation (is this malignancy, awaiting ROBF, desiring homegoing). Continue current outpatient regimen and monitor BP per protocol. Will follow along with you. Status: Chronic (5) Hyperlipemia, mixed: Problem comment: - Continue outpatient dose of rosuvastatin Status: Chronic (6) Enlarged prostate: Problem comment: - 11/05/22 CT abd/pelvis: Prostatomegaly, correlate with serum PSA. - F/u with PCP as outpatient for LAKESHIA's, PSA, monitoring symptoms Status: Acute (7) Renal lesion: Problem comment: - 11/05/22 CT abd/pelvis: Indeterminate subcentimeter bilateral renal lesions, too small to characterize. Recommend follow-up CT in 6-12 months. Status: Acute
[2022-11-08] MEDS: POTASSIUM CHLORIDE 10 MEQ CAPSULE ER PO ×2 (15:06→17:58)
--- NOTE | 2022-11-08 19:19 | PC.NURSE ---
shift note: pt up ambulated in baum x5. pt states he's passing minimal flatus and stated he had one very small BM. Pt abd continues to be distended but is soft on palpation. BS @ 1800 absent. Pt denies nausea. pt medicated with prn norco & zofran x2 with relief. BP elevated during the day 170's-180's systolic. Dr. Goldberg aware. Pt NPO at this time. Pt refused IV x2. Dr. Birch aware of pt refusal of IV and PO K+ ordered. LS clr. pt using IS indept to 1999. Pt afeb. Will continue to monitor. Report given to Jonatan TAYLOR
[2022-11-08] MEDS: LACTATED RINGERS 1000 ML 1,000 ML 125 ML IV (21:33)
[2022-11-08] MEDS: HYDROmorphone 0.5 mg/0.5 ml inj IVP (21:33)
[2022-11-09] VITALS (7 sets, daily range): BP systolic 153–183; BP diastolic 77–105; PULSE 61–95; RESP 16–18; TEMP 36.7–37; O2SAT 90–93
[2022-11-09] MEDS: LACTATED RINGERS 1000 ML 1,000 ML 125 ML IV (06:08)
--- NOTE | 2022-11-09 07:26 | PC.NURSE ---
Shift note: Pt's condition is stable. Pain has been minimal between 3 and 5. No nausea reported. New Iv line set and infusing R/L at 125ml/hr. Hypoactive bowel sound.
[2022-11-09 07:58] LABS: Chloride* 97 mmol/L (96-114); Sodium* 136 mmol/L (135-149)
[2022-11-09 08:01] LABS: Blood Urea Nitrogen* 13 mg/dL (7-30); Carbon Dioxide* 32 mmol/L (20-32); Creatinine* 0.7 mg/dL (0.5-1.5); Est. Creatinine Clearance* 73.65; Estimated Glomerular Filt Rate 102 ml/min
[2022-11-09 08:02] LABS: Calcium* 8.6 mg/dL (8.4-10.6); Glucose* 109 mg/dL (60-115); Magnesium* 1.8 mg/dL (1.5-2.6)
[2022-11-09] MEDS: POTASSIUM CHLORIDE 10 MEQ CAPSULE ER PO (08:31)
--- NOTE | 2022-11-09 11:02 | P.GSPN_ITS ---
Subjective Subjective Date Seen: 11/09/22 Interval history: Patient is doing well today. His pain is improved. He did not require pain medications since yesterday. He passed gas. No bowel movement. He denies nausea or vomiting. He ambulated multiple times. Exam Narrative: Exam Narrative: Abdomen is soft, not distended, ?sensitive? to palpation. There is no invol untary guarding or peritoneal signs. Const: Vital Signs, click to edit/add: Vital Signs - 24 hr 11/08/22 14:25 11/08/22 15:00 11/08/22 15:06 Temperature 98.4 F 98.3 F Pulse Rate [Pulse Oximeter] 78 83 Respiratory Rate 16 18 Blood Pressure [Le ft Arm] 170/81 H Pulse Oximetry 94 Oxygen Delivery Me thod Room Air 11/08/22 17:41 11/08/22 17:48 11/08/22 19:00 Temperature 5 F L 98.2 F 98.2 F Pulse Rate [Pulse Oximeter] 83 83 Respiratory Rate 18 18 Blood Pressure [Le ft Arm] 149/83 H 160/83 H Pulse Oximetry 91 91 Oxygen Delivery Me thod Room Air Room Air 11/08/22 23:00 11/08/22 23:00 11/09/22 03:00 Temperature 98.3 F 98.6 F Pulse Rate [Pulse Oximeter] 73 83 79 Respiratory Rate 18 18 18 Blood Pressure [Le ft Arm] 169/83 H 169/77 H Pulse Oximetry 93 92 Oxygen Delivery Me thod Room Air Room Air 11/09/22 07:00 11/09/22 07:00 11/09/22 10:58 Temperature 98.0 F 98.2 F Pulse Rate [Pulse Oximeter] 77 77 73 Respiratory Rate 18 16 18 Blood Pressure [Le ft Arm] 160/89 H 153/77 H Pulse Oximetry 90 91 Oxygen Delivery Me thod Room Air Room Air Progress Note: A&P Assessment and plan (1) S/P right hemicolectomy: Problem details: - 11/05/22 Dr. Edmonds for acute appendicitis with appendiceal abnormalities concerning for possible malignancy. Pathology is pending. - Awaiting return of bowel function. Cares per surgery. - If he will be NPO overnight, patient agreeable to start IVF for hydration. Status: Acute Plan 67-year-old male s/p lap appy converted to right hemicolectomy POD 4. We will start advancing patient's diet to clear liquids and by the end of the day if he is doing well, he can have full liquid diet. He should continue ambulating as much as possible. Patient initially refused taking oral liquid potassium replacement so the tablets were given instead. His potassium is still low today at 3.0. We will replace his potassium. I will also start the patient on Lovenox for DVT prophylaxis.
[2022-11-09] MEDS: ENOXAPARIN 40 MG/0.4 ML INJ SUBCUT (12:46)
--- NOTE | 2022-11-09 14:06 | PC.NURSE ---
End of Shift: Pt pleasant and cooperative, AOx3 throughout shift reporting pain at 5/10. Diet advanced to clear liquids, pt tolerating popsicle and cranberry juice well. No BM today, passing flatus, continent with urine. Bowel sounds active. Ambulating independently.
--- NOTE | 2022-11-09 14:23 | PM.IMPN1 ---
Progress Note: A&P Assessment and plan (1) S/P right hemicolectomy: Problem details: - 11/05/22 Dr. Edmonds for acute appendicitis with appendiceal abnormalities concerning for possible malignancy. Pathology is pending. Cares per surgery. - Bowel function improving. Advancing diet today. Stop IVF. Status: Acute (2) Acute appendicitis: Status: Resolved (3) Hypokalemia: Problem details: Persistently low. Magnesium within normal limits this morning. Increase dose of oral potassium twice a day and given extra dose today. Recheck in am. Status: Acute (4) Hyperlipemia, mixed: Problem details: - Continue outpatient dose of rosuvastatin Status: Chronic (5) HTN (hypertension): Problem details: - BP mildly elevated. Continue current outpatient regimen and monitor BP per protocol. No need for additional medication at this time. Status: Chronic (6) Enlarged prostate: Problem details: - 11/05/22 CT abd/pelvis: Prostatomegaly, correlate with serum PSA. - F/u with PCP as outpatient for LAKESHIA's, PSA, monitoring symptoms Status: Acute (7) Renal lesion: Problem details: - 11/05/22 CT abd/pelvis: Indeterminate subcentimeter bilateral renal lesions, too small to characterize. Recommend follow-up CT in 6-12 months. Status: Acute Subjective Time Seen by Provider: 15:10 Date Seen: 11/09/22 Interval history: Roddy is feeling much better today. He's had flatus and some small dark stools. He has been ambulating frequently. Dr. Edmonds saw him this morning and wrote to advance his diet. So far he's had some water. He has been chewing gum. We discussed how drinking sips of other fluids may be helpful because the flavor and caloric content might also stimulate his gut. His and daughter were also in the room. We discussed blood pressure. Exam Narrative: Exam Narrative: General: No acute distress. Affect is flat and irritated. Awake alert oriented x3. Cardiovascular: Regular rate and rhythm. Chest: No increased work of breathing. Clear to auscultation bilaterally. No crackles or wheezes. Abdomen: Bowel sounds present. Less distended. Extremities: Trace bilateral ankle edema. Const: Vital Signs, click to edit/add: Vital Signs - 24 hr 11/08/22 14:25 11/08/22 15:00 11/08/22 15:06 Temperature 98.4 F 98.3 F Pulse Rate [Pulse Oximeter] 78 83 Respiratory Rate 16 18 Blood Pressure [Le ft Arm] 170/81 H Pulse Oximetry 94 Oxygen Delivery Me thod Room Air 11/08/22 17:41 11/08/22 17:48 11/08/22 19:00 Temperature 5 F L 98.2 F 98.2 F Pulse Rate [Pulse Oximeter] 83 83 Respiratory Rate 18 18 Blood Pressure [Le ft Arm] 149/83 H 160/83 H Pulse Oximetry 91 91 Oxygen Delivery Me thod Room Air Room Air 11/08/22 23:00 11/08/22 23:00 11/09/22 03:00 Temperature 98.3 F 98.6 F Pulse Rate [Pulse Oximeter] 73 83 79 Respiratory Rate 18 18 18 Blood Pressure [Le ft Arm] 169/83 H 169/77 H Pulse Oximetry 93 92 Oxygen Delivery Me thod Room Air Room Air 11/09/22 07:00 11/09/22 07:00 11/09/22 10:58 Temperature 98.0 F 98.2 F Pulse Rate [Pulse Oximeter] 77 77 73 Respiratory Rate 18 16 18 Blood Pressure [Le ft Arm] 160/89 H 153/77 H Pulse Oximetry 90 91 Oxygen Delivery Me thod Room Air Room Air Documenting provider has reviewed patient's vital signs: yes Labs Labs: Laboratory Results - last 24 hr 11/09/22 06:39 Sodium 136 Potassium 3.0 L Chloride 97 Carbon Dioxide 32 BUN 13 Creatinine 0.7 Estimated Creat Clear 73.65 Estimated GFR 102 Glucose 109 Calcium 8.6 Magnesium 1.8
[2022-11-09] MEDS: ONDANSETRON ODT 4 MG TAB PO (15:56)
[2022-11-09] MEDS: ACETAMINOPHEN 325 MG TABLET 650 MG PO (15:56)
[2022-11-09] MEDS: POTASSIUM CHLORIDE 10 MEQ CAPSULE ER 20 MEQ PO (18:11)
--- NOTE | 2022-11-09 19:01 | PC.NURSE ---
Nursing Care Hours: [id number] Pt this shift calm and cooperative, alert and oriented. Independent ambulation in room and frequently walking halls. Pt rating pain 5/10. No pain meds given, pt concerned about constipation and increasing bloating and abdominal pain. Educated on Tylenol verses narcotic pain medications. Agreed to take Tylenol. C/o having uneasy feeling in stomach. Zofran given. Pt able to eat cream of chicken soup, tolerating well at this time. Pt states he is passing gas and had xxs nugget size BM.
[2022-11-10 03:00] VITALS: BP 183/94; PULSE 85; RESP 18; TEMP 36.4; O2SAT 91
[2022-11-10 06:57] LABS: Chloride* 94 mmol/L (96-114); Sodium* 136 mmol/L (135-149)
[2022-11-10 06:59] LABS: Creatinine* 0.7 mg/dL (0.5-1.5); Est. Creatinine Clearance* 73.65; Estimated Glomerular Filt Rate 102 ml/min
[2022-11-10 07:00] VITALS: BP 173/95; PULSE 77; RESP 18; TEMP 36.4; O2SAT 93
[2022-11-10 07:00] LABS: Blood Urea Nitrogen* 10 mg/dL (7-30); Calcium* 8.7 mg/dL (8.4-10.6); Carbon Dioxide* 34 mmol/L (20-32); Glucose* 118 mg/dL (60-115)
--- NOTE | 2022-11-10 07:04 | PC.NURSE ---
END OF SHIFT NOTE: PT PLEASANT AND COOPERATIVE. PT DENIES CP, SOB, N/V. AMBULATES WITHIN ROOM INDEPENDENTLY. VSS ON RA; BP?S HTN.?AFEBRILE. CALL LIGHT WITHIN PT?S REACH. CALLS APPROPRIATELY. PT REQUESTS SLEEP. PT TOLERATING FULL LIQUID DIET. R. ABD INCISION AND 3LAP SITES COVERED WITH STERI STRIPS.
[2022-11-10] MEDS: POTASSIUM CHLORIDE 10 MEQ CAPSULE ER 20 MEQ PO (07:46)
--- NOTE | 2022-11-10 10:27 | PC.NURSE ---
Discharge: patient alert and oriented x4, patient pleasant and cooperative. at bedside this morning. Patient up and ambulating indep. in room and hallway, tolerating activity well. Patient adv to reg. diet and tolerated breakfast well. Denies pain, N/V/SOB. Patient discharged at 1000, accompanied by spouse. IV removed intact. Dressing to abdomen C/D/I, 3 lap sites covered w/steri strips c/d/I. Patient belongings sheet signed, Discharge instructions given and patient verbalized understanding and need to follow up with primary care doctor in [place], [place]. Discharge instructions signed.
== END 2022-11-10 10:00 | disposition home or self-care (01) | DRG 330 ==
LOC: ED 21:40 → SS 21:58 → MEDSURG 11-07 10:13 → SS 11-19 08:09
PROVIDERS: Family Medicine; Admitting Provider Surgery; Emergency Provider Emergency Medicine Emergency Medical Services; Visit Provider Surgery
PROC: 0DTJ4ZZ Resection of Appendix, Percutaneous Endoscopic Approach (ICD-10-PCS; CPT 44970; principal; 2022-11-05 22:45)
DX: K35.80 Unspecified acute appendicitis (principal); K63.3 Ulcer of intestine; K63.89 Other specified diseases of intestine; R14.0 Abdominal distension (gaseous); I10 Essential (primary) hypertension; E87.6 Hypokalemia; N28.9 Disorder of kidney and ureter, unspecified; N40.0 Benign prostatic hyperplasia without lower urinary tract symptoms; E78.2 Mixed hyperlipidemia; F43.22 Adjustment disorder with anxiety
CPT/HCPCS: 00840; 36415; 74177; 80048; 80076; 83690; 83735; 85025; 88307; 93005; 99140; 99284; A9270; J0330; J1100; J1170; J1650; J1885; J2250; J2270; J2405; J2543; J2704; J3010; J3480; J3490; J7030; J7120; Q9967